=== PATIENT | female | born 1955 | race Caucasian/White ===

== ENCOUNTER 2017-03-24 12:53 | Emergency (ER) ==
[2017-03-24 13:04] VITALS: BP 171/106; TEMP 98.9; BMI 29.9
[2017-03-24] MEDS ORDERED: MOTRIN PO STA (13:17)
--- NOTE | 2017-03-24 13:18 | ED.PDOC ---
General ED Provider: Dr. HERMES DAVIES Chief Complaint: Toe Pain/Injury Stated Complaint: stubbed the left 3rd toe last night. Has pain and contution . Able to bear weight due to pain. Time Seen by Physician: 13:16 Mode of Arrival: Walk-In Information Source: Patient Exam Limitations: No limitations Seen Within Last 72 Hours for Same Complaint By: ED Nursing and Triage Documentation Reviewed and Agree: Yes Musculoskeletal Complaint Exam - Ankle/Foot Complaint/Exam Location of Injury: Reports: Left, Toe #3 Mechanism of Injury: Reports: Trauma Onset/Duration: 13 hours ago Onset of Pain: Reports: Immediate Initial Severity: Moderate Current Severity: Moderate Location: Reports: Discrete (mid to distal aspect of fore ) Character: Reports: Aching, Throbbing Alleviating: Reports: Rest Aggravating: Reports: None Able to Bear Weight: Yes Associated Signs and Symptoms: Reports: Swelling, Bruising Gout Risk Factors: Reports: None Related Surgical History: Reports: None Lower Extremity Findings: Present: Swelling, Tenderness, Limited range of motion Review of Systems - Review Of Systems Constitutional: Reports: No symptoms Eyes: Reports: No symptoms Ears, Nose, Mouth, Throat: Reports: No symptoms Respiratory: Reports: No symptoms Cardiac: Reports: No symptoms GI: Reports: No symptoms : Reports: No symptoms Musculoskeletal: Reports: Joint swelling Skin: Reports: No symptoms Neurological: Reports: No symptoms Endocrine: Reports: No symptoms Hematologic/Lymphatic: Reports: No symptoms All Other Systems: Reviewed and Negative Past Medical History - Past Medical History Previously Healthy: Yes Endocrine: Reports: None Cardiovascular: Reports: None Respiratory: Reports: None Hematological: Reports: None Gastrointestinal: Reports: None Genitourinary: Reports: None Neuro/Psych: Reports: None Musculoskeletal: Reports: None Cancer: Reports: None Last Menstrual Period: UNKNOWN - Surgical History General Surgical History: Reports: None - Family History Family History: Reports: None - Social History Smoking Status: Current every day smoker, Light tobacco smoker Hx Substance Use: No Alcohol Screening: Occasionally Physical Exam - Physical Exam Appearance: Ill-appearing Pain Distress: Moderate Skin: Warm, Dry Interpretation - Radiology Interpretation Radiology Interpretation By: ED Physician Radiology Results: Negative Exam Interpreted: Other (Toe x ray ) Critical Care Note - Critical Care Note Total Time (mins): 0 Course - Course Orders, Labs, Meds: Orders Category Date Time Status Tramadol HCl [Ultram] MEDS 03/24/17 13:21 Discontinued 50 mg PO ONCE STA TOE(S), LEFT MIN 2V Stat RADS 03/24/17 13:15 Completed Medications Discontinued Medications Generic Name Dose Route Start Last Admin Trade Name Papo PRN Reason Stop Dose Admin Tramadol HCl 50 mg 03/24/17 13:21 03/24/17 13:28 Ultram PO 03/24/17 13:22 50 mg ONCE STA Administration Vital Signs: Temp Pulse Resp BP Pulse Ox 03/24/17 12:55 98.9 F 75 20 171/106 H 98 Departure - Departure Time of Disposition: 13:38 Disposition: HOME SELF-CARE Discharge Problem: Injury of toe Instructions: Crush Injury (ED), Contusion in Adults (ED) Condition: Fair Pt referred to PMD for follow-up: Yes Additional Instructions: Keep foot elevated Follow up with PC in 3 day Continue ibupfren as needed for pain. take ultram for severe pain Prescriptions: Tramadol HCl [Ultram] 50 mg PO Q6H PRN #7 tablet PRN Reason: Severe Pain Allergies/Adverse Reactions: Allergies codeine Adverse Reaction (Verified 03/24/17 13:03) Home Medications: Ambulatory Orders Calcium Carbonate/Vitamin D3 [Caltrate 600 + D Tablet] 1 each PO DAILY 03/24/17 Cholecalciferol (Vitamin D3) [Vitamin D3] 5,000 unit PO DAILY 03/24/17 Desvenlafaxine [Desvenlafaxine ER] 50 mg PO DAILY 03/24/17 Glyburide [Diabeta] 5 mg PO DAILY 03/24/17 Liraglutide [Victoza 3-John] 0.6 mg SQ DAILY 03/24/17 Lisinopril [Zestril] 20 mg PO DAILY 03/24/17 Pravastatin Sodium [Pravachol] 20 mg PO BEDTIME 03/24/17 Sitagliptin Phos/Metformin HCl [Janumet Xr 100-1,000 mg Tablet] 1 each PO DAILY 03/24/17 Tramadol HCl [Ultram] 50 mg PO Q6H PRN #7 tablet 03/24/17 Disposition Discussed With: Patient, Family
[2017-03-24] MEDS ORDERED: ULTRAM PO STA (13:21)
--- NOTE | 2017-03-24 14:20 | DI ---
Exam: Left toes. HISTORY: Injury. FINDINGS: AP, lateral oblique views of the left toes. No acute fractures are identified. There ar e no lytic or blastic lesions. Joint narrowing and osteophyte formation is seen in the interphalang eal joints. There are no erosive changes. IMPRESSION: 1. No acute fractures. 2. Osteoarthritis.
== END 2017-03-24 13:50 | disposition home or self-care (01) ==
LOC: ED 12:53
DX: S90.122A Contusion of left lesser toe(s) without damage to nail, initial encounter (principal); W22.8XXA Striking against or struck by other objects, initial encounter; F17.210 Nicotine dependence, cigarettes, uncomplicated
CPT/HCPCS: 99283